=== PATIENT | male | born 1975 | race Caucasian/White ===

== ENCOUNTER 2019-04-10 08:16 | Emergency (ER) | payer OTHER, SELFPAY ==
[2019-04-10 08:23] VITALS: BP 133/79; PULSE 72; RESP 18; TEMP 36.5; O2SAT 98
--- NOTE | 2019-04-10 08:35 | ED.GENADULT ---
HPI - General Adult General Chief complaint: Upper Respiratory Infection Stated complaint: cough and sinus Time Seen by Provider: 04/10/19 08:36 Source: patient and RN notes reviewed Mode of arrival: ambulatory Limitations: no limitations History of Present Illness HPI narrative: This is a 43 years old male presented office for evaluation of cough for a few weeks. Symptoms began mid January and has lingering since then. He also report intermittent sinus congestion with drainage. Cough has gotten worse for the last few day with shortness of breath on exertion. Stated he felt a little winded when he exercise. Denies sick contact. He does not smoke. He has tried multiple [id number] congestion medicine with no relief.He had received influenza vaccine for the season. Related Data Allergies Allergy/AdvReac Type Severity Reaction Status Date / Time No Known Allergies Allergy Mild Verified 12/25/18 15:33 Review of Systems Review of Systems: Narrative: CONSTITUTIONAL: Denies fever ENT: Reports congestion CARDIOVASCULAR: Denies chest pain RESPIRATORY: Denies wheezing. Reports dyspnea with cough and exertion GASTROINTESTINAL: Denies abdominal pain, nausea, vomiting, diarrhea. GENITOURINARY: Denies urinary symptoms SKIN: Denies rash MUSCULOSKELETAL: Denies acute back pain NEUROLOGIC: Denies lightheaded PMFSH Family History Family History Other Cerebrovascular accident Hypertension Social History Social History Smoking status: Former smoker Smoking end date: 02/21/11 Alcohol intake: never Comments At time of signature, I agree with nursing past medical, surgical, social and family history. There is no relevant family history pertinent to the presenting complaint. Exam Narrative: Exam Narrative: GENERAL: This is a well-nourished, well-developed patient, in no apparent distress. EYES: Sclera clear/white. Vision is grossly intact. EARS: External ears normal, auditory canals clear and without drainage, TMs normal without perforation. Hearing grossly intact. NOSE: External nose normal with no obvious nasal discharge, nares without redness, no rhinorrhea. THROAT: Mucous membranes moist, posterior pharynx erythema and edematous NECK: Neck supple, non-tender without lymphadenopathy, masses or thyromegaly. CARDIOVASCULAR: Regular rate and rhythm without murmurs, gallops, or rubs. RESPIRATORY: Clear to auscultation except in the lower lobe noted diminished breath sound with occasional cough when he take a deep breath. Breath sounds equal bilaterally. No wheezes, rales, or rhonchi. GASTROINTESTINAL: Abdomen soft, non-tender, nondistended. Bowel sounds are active. No hepato-splenomegaly, or palpable masses. No guarding. SKIN: warm, intact with no suspicious lesions or rash, good texture and turgor. NEURO: awake, alert, and oriented to person, place and time. There were no obvious focal neurologic abnormalities. Steady gait [place] Coma Scale Eye Opening: Spontaneous 4 [place] Coma Scale Motor: Obeys Commands 6 [place] Coma Scale Verbal: Oriented 5 Course Vital Signs Vital signs: Vital Signs Temperature 97.7 F 04/10/19 08:23 Pulse Rate 72 04/10/19 08:23 Respiratory Rate 18 04/10/19 08:23 Blood Pressure 133/79 04/10/19 08:23 Pulse Oximetry 98 04/10/19 08:23 Temperature 97.7 F 04/10/19 08:23 Pulse Rate 72 04/10/19 08:23 Respiratory Rate 18 04/10/19 08:23 Blood Pressure 133/79 04/10/19 08:23 Pulse Oximetry 98 04/10/19 08:23 Medical Decision Making MDM Narrative Medical decision making narrative: Discharge instructions reviewed with patient, as well as provided in writing per nursing staff. The instructions also include specific and strict return/GO TO THE ER as well as f/u information. All questions have been answered, and the patient deny any further questions
== END 2019-04-10 09:50 | disposition home or self-care (01) ==
PROVIDERS: Emergency Provider Nurse Practitioner; PCP Family Medicine
DX: J06.9 Acute upper respiratory infection, unspecified (principal); Z87.891 Personal history of nicotine dependence
CPT/HCPCS: 99213; G0463

== ENCOUNTER → 2021-08-12 09:32 | Outpatient (CLI) | payer OTHER, SELFPAY ==
--- NOTE | ~2021-08-12 | XR_ITS ---
EXAMINATION: XR lumbar spine 2-3V DATE: 08/12/2021 10:05 INDICATION: Chronic low back pain TECHNIQUE: Anteroposterior and lateral views of the lumbar spine, and cone-down lateral view of the l umbosacral junction were obtained. COMPARISON: 12/29/2018 FINDINGS: There is no fracture, dislocation, or subluxation. The vertebral body heights are normal. T here is mild loss of intervertebral disc space height at L5-S1. The S1 segment is transitional. Small degenerative osteophytes project from the anterior endplates of multiple vertebral bodies. IMPRESSION: 1. Mild lumbar spondylosis without acute findings or significant interval change. Reviewed, dictated and finalized at location A. IMPRESSION: 1. Mild lumbar spondylosis without acute findings or significant interval gely rogers
--- NOTE | ~2021-08-12 | XR_ITS ---
EXAMINATION: XR sacrum coccyx min 2V INDICATION: Chronic low back pain TECHNIQUE: Three views of the sacrum and coccyx are obtained. COMPARISON: None available FINDINGS: Bone alignment is normal. There is no fracture. Mild lower lumbar spondylosis is noted. The re are phleboliths of the pelvis. The S1 segment is transitional. IMPRESSION: 1. No acute osseous abnormality. Reviewed, dictated and finalized at location A.
== END ==
PROVIDERS: PCP Family Medicine; Visit Provider Nurse Practitioner Family
DX: M47.896 Other spondylosis, lumbar region (principal)
CPT/HCPCS: 72100; 72220

== ENCOUNTER → 2022-02-24 15:46 | Outpatient (CLI) | payer OTHER, SELFPAY ==
--- NOTE | ~2022-02-24 | XR_ITS ---
XR chest 2V DATE: 02/24/2022 16:14 INDICATION: Cough. Acute bronchitis. TECHNIQUE: 2 views COMPARISON: 01/10/2015 2 view chest FINDINGS: There is middle lobe infiltrate and/atelectasis. Middle lobe pneumonia is suspected. The remaining lung gregory appear clear. No pleural effusion or pulmonary vascular congestion or pneum othorax. Normal heart size. No hilar or mediastinal enlargement. IMPRESSION: Middle lobe infiltrate and/atelectasis Reviewed, dictated and finalized at location B. [employer]
== END ==
PROVIDERS: PCP Family Medicine; Visit Provider Physician Assistant Medical
DX: J20.9 Acute bronchitis, unspecified (principal); R91.8 Other nonspecific abnormal finding of lung field
CPT/HCPCS: 71046

== ENCOUNTER → 2022-05-12 17:28 | Outpatient (CLI) | payer OTHER, SELFPAY ==
--- NOTE | ~2022-05-12 | XR_ITS ---
EXAMINATION: XR chest 2V Exam Date/Time: 05/12/2022 17:50 CDT HISTORY: R05.9 - Cough, unspecified Comparison: 02/24/2022. RESULT: Lines, tubes, and devices: None. Lungs and pleura: Clear. Complete interval resolution of the previously described consolidation. Cardiomediastinal silhouette: Stable. Other: No acute osseous or upper abdominal finding. IMPRESSION: No acute cardiopulmonary process. Reviewed, dictated and finalized at location K.
== END ==
PROVIDERS: PCP Family Medicine; Visit Provider Nurse Practitioner Family
DX: R05.9 Cough, unspecified (principal)
CPT/HCPCS: 71046